=== PATIENT | female | born 1990 | race Caucasian/White ===

== ENCOUNTER 2025-01-07 20:47 | Emergency (ER) | payer MEDICAID ==
[~2025-01-07] VITALS: Ht 162.6 cm; Wt 87.0 kg
[2025-01-07 20:53] VITALS: BP 126/77; PULSE 90; RESP 20; TEMP 36.7; O2SAT 98
== END 2025-01-07 21:21 | disposition left against medical advice (07) ==
LOC: ER 20:47
DX: F41.9 Anxiety disorder, unspecified (principal); F31.9 Bipolar disorder, unspecified
CPT/HCPCS: 99281